=== PATIENT | female | born 1990 | race African-American/Black ===

== ENCOUNTER 2021-09-14 17:37 | Emergency (ER) | payer OTHER, SELFPAY ==
[2021-09-14 17:39] VITALS: BP 158/100; PULSE 80; RESP 16; TEMP 36.6; O2SAT 99
--- NOTE | 2021-09-14 18:13 | ED.EYEPROB ---
HPI - Eye Problem General Chief complaint: Eye Problems Stated complaint: left eye problem Time Seen by Provider: 09/14/21 17:47 History of Present Illness HPI Narrative: 31-year-old female presenting with left eye itching and feeling of irritation as if something is in the eye since last night, it was better this morning but her work wanted her to come to the hospital to be checked. No trauma, no one else with similar symptoms when her, no fevers or chills, no pain with movement of the eye. Related Data Allergies Allergy/AdvReac Type Severity Reaction Status Date / Time No Known Allergies Allergy Verified 09/14/21 17:38 Review of Systems Review of Systems: CONST: No fever. 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 EYES: Left eye injected, VA intact bilaterally, EOMI, no fluorescein uptake ENT: Hearing grossly intact LUNGS: Nonlabored breathing. HEART: [Regular rate and rhythm] EXT: Normal range of motion SKIN: [No rashes or lesions.] NEURO: [Alert and oriented x 3. No gross focal sensory or strength deficits.] PSYCH: Normal affect Course Vital Signs Vital signs: Vital Signs Temperature 97.9 F 09/14/21 17:39 Pulse Rate 80 09/14/21 17:39 Respiratory Rate 16 09/14/21 17:39 Blood Pressure 158/100 H 09/14/21 17:39 Pulse Oximetry 99 09/14/21 17:39 Oxygen Delivery Room Air 09/14/21 17:39 Temperature 97.9 F 09/14/21 17:39 Pulse Rate 80 09/14/21 17:39 Respiratory Rate 16 09/14/21 17:39 Blood Pressure 158/100 H 09/14/21 17:39 Pulse Oximetry 99 09/14/21 17:39 Oxygen Delivery Room Air 09/14/21 17:39 MDM - Eye Problem MDM Narrative Medical decision making narrative: 31-year-old female presenting with left red and teary eye that is itchy, vital signs stable, exam shows no corneal abrasion, or EOMI that is painless, suspect likely viral conjunctivitis, she does not wear contact lenses, will discharge her on erythromycin ointment and follow-up with ophthalmology, return if worse. Differential Diagnosis Differential diagnosis: Likely conjunctivitis; Unlikely corneal abrasion or acute iritis Discharge Plan Discharge Clinical Impression: Conjunctivitis Qualifiers: Conjunctivitis type: acute Acute conjunctivitis type: viral Laterality: left Qualified Code(s): B30.9 - Viral conjunctivitis, unspecified Patient Disposition: Home, Self-Care Condition: Stable Instructions: Antibiotic Form, Conjunctivitis (ED) Additional Instructions: Please use the eye ointment at least twice a day, and come back if you notice any worsening eye pain or blurry vision; follow up with the eye doctor or a primary care doctor. Prescriptions: New erythromycin 5 mg/gram (0.5 %) ointment 1 applic LEFT EYE BID 5 Days Qty: 3.5 0RF Follow-up/Referrals: Sandra Franco DO [Physician] - 2 Days Naresh Priest MD [Physician] - 2 Days PHYSICIAN,MANAGER SAS [Primary Care Provider] -
[2021-09-14] MEDS: ERYTHROMYCIN OPHTH OINTMENT 1 GM TUBE 1 APPLIC LEFT EYE (18:15)
== END 2021-09-14 18:32 | disposition home or self-care (01) ==
PROVIDERS: Emergency Provider Emergency Medicine
DX: B30.9 Viral conjunctivitis, unspecified (principal)
CPT/HCPCS: 99283; A9270

== ENCOUNTER 2022-02-05 02:14 | Emergency (ER) | payer OTHER, SELFPAY ==
[2022-02-05 02:21] VITALS: BP 164/104; PULSE 76; RESP 18; TEMP 36.3; O2SAT 100
[2022-02-05] MEDS: LIDOCAINE HCL 1% PF 30 ML VIAL 5 ML INFILTRATE (03:03)
--- NOTE | 2022-02-05 03:39 | ED.SKABFB ---
HPI - Skin/Abscess/Foreign Bdy General Chief complaint: Skin/Abscess/Foreign Body Stated complaint: Right nare MRSA Time Seen by Provider: 02/05/22 02:27 History of Present Illness HPI narrative: Patient is a 31-year-old female who presents ER with nasal abscess. This developed over the last couple days. Increased swelling at the nasal septum near the upper lip. Patient was able to express purulence this evening. No fevers chills or sweats. Has significant pain due to draining the abscess at home. 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 Related Data Allergies Allergy/AdvReac Type Severity Reaction Status Date / Time No Known Allergies Allergy Verified 02/05/22 02:15 Review of Systems Constitutional: Constitutional: Denies chills and Denies fever(s) ENT: Denies nasal congestion and Denies sore throat Comments: Nasal swelling with abscess Respiratory: Respiratory: Denies cough and Denies dyspnea Integumentary/Breasts: Skin/Breast: Denies erythema, Denies rash and Denies skin ulcer PMFSH Past Medical History Medical History (Updated 02/05/22 @ 03:39 by Toy Saba MD) No active medical problems Surgical History Surgical History (Updated 02/05/22 @ 03:43 by Toy Saba MD) No pertinent past surgical history Social History Social History (Updated 09/14/21 @ 18:15 by Sol Rocha MD) 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 HEAD: Normocephalic, atraumatic. EYES: PERRL and EOMI. ENT: Mucous membranes moist. Abscess nasal septum and upper lip mainly right nostril. Purulence can be expressed. NEURO: Alert and oriented x3. PSYCH: Normal mood and affect. Course Course Emergency Course: Attempted additional needle aspiration which was unsuccessful. Purulence can still be expressed we will put on topical and oral antibiotics and given ENT follow-up. Patient verbalized treatment plan. Vital Signs Vital signs: Vital Signs Temperature 97.4 F L 02/05/22 02:21 Pulse Rate 76 02/05/22 02:21 Respiratory Rate 18 02/05/22 02:21 Blood Pressure 164/104 H 02/05/22 02:21 Pulse Oximetry 100 02/05/22 02:21 Oxygen Delivery Room Air 02/05/22 02:21 Temperature 97.4 F L 02/05/22 02:21 Pulse Rate 76 02/05/22 02:21 Respiratory Rate 18 02/05/22 02:21 Blood Pressure 164/104 H 02/05/22 02:21 Pulse Oximetry 100 02/05/22 02:21 Oxygen Delivery Room Air 02/05/22 02:21 Discharge Plan Discharge Clinical Impression: Abscess of nasal septum Patient Disposition: Home, Self-Care Condition: Stable Instructions: Antibiotic Form, Abscess (ED) Additional Instructions: Follow-up with ENT for further treatment evaluation. You are being started on both the topical and oral antibiotic. Take them as directed. Take Wiley as needed for pain. Return the ER if you have increased swelling, you have fever over 100.4 ?F, you cannot keep down food/water/medication, you have additional concerns. Prescriptions: New sulfamethoxazole-trimethoprim [Bactrim DS] 800-160 mg tablet 1 tablet PO Q12H Qty: 20 0RF mupirocin 2 % ointment 1 applic topical TID Qty: 15 0RF hydrocodone-acetaminophen 5-325 mg tablet 1 tablet PO Q6H PRN (Reason: pain) Qty: 12 0RF No Action erythromycin 5 mg/gram (0.5 %) ointment 1 applic LEFT EYE BID 5 Days Qty: 3.5 0RF Follow-up/Referrals: Lenard Suh MD [Physician] - 1 Week PHYSICIAN,DITTO MACHINE OPERATOR [Primary Care Provider] -
== END 2022-02-05 04:05 | disposition home or self-care (01) ==
PROVIDERS: Emergency Provider Emergency Medicine
DX: J34.0 Abscess, furuncle and carbuncle of nose (principal)
CPT/HCPCS: 10160; 99283

== ENCOUNTER 2022-02-05 17:27 | Emergency (ER) | payer OTHER, SELFPAY ==
[2022-02-05 18:04] VITALS: BP 101/82; PULSE 72; RESP 16; TEMP 36.9; O2SAT 99
--- NOTE | 2022-02-05 19:52 | ED.GENADULT ---
HPI - General Adult General Chief complaint: Wound/Laceration Stated complaint: i have MRSA in my nose Time Seen by Provider: 02/05/22 19:42 Source: patient Mode of arrival: ambulatory Limitations: no limitations History of Present Illness HPI narrative: Presents complaints of purulent discharge from abscess to right nostril that started this afternoon. States was evaluated last night in the ER with I&D performed on abscess but no discharge at the time of I&D. States today started having copious amounts of purulent discharge to right nostril abscess. Patient was concerned that abscess was worsening and wanted to have checked. She is concerned that she may have MRSA. She was prescribed Bactrim DS as well as Bactroban. Also worried due to increased pain to the area following I&D. Denies fever or other complaints at this time. Related Data Allergies Allergy/AdvReac Type Severity Reaction Status Date / Time No Known Allergies Allergy Verified 02/05/22 02:15 Review of Systems Review of Systems: CONSTITUTIONAL: Denies fever, chills, or sweats. EYES: Denies visual changes, redness, or discharge. ENT: Abscess to right distal nostril. Denies rhinorrhea, congestion, sore throat, or otalgia. CARDIOVASCULAR: Denies chest pain, palpitations, or edema. RESPIRATORY: Denies cough or dyspnea. GASTROINTESTINAL: Denies abdominal pain, nausea, vomiting, or diarrhea. GENITOURINARY: Denies dysuria or hematuria. SKIN: Denies rash or itching. MUSCULOSKELETAL: Denies back pain, joint pain, or myalgia. NEUROLOGIC: Denies headache, numbness, or weakness. PSYCHIATRIC: Denies anxiety or depression. 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 HEAD: Normocephalic, atraumatic. EYES: PERRLA and EOMI. ENT: 1 cm abscess with central opening to right nostril. When pressure is applied to the area scant amount of green purulent discharge noted. Nares clear, no rhinorrhea or epistaxis. Mucous membranes moist. NECK: Supple. No palpable lymphadenopathy noted. CHEST: Clear to auscultation. No respiratory distress. HEART: Regular rate and rhythm. No murmur heard. Normal peripheral pulses. ABDOMEN: Soft, nontender, nondistended, normal active bowel sounds. EXTREMITIES: Normal range of motion. No edema. SKIN: Warm, dry, no rash. NEURO: No focal deficits. Alert and oriented x3. PSYCH: Normal mood and affect. Course Vital Signs Vital signs: Vital Signs Temperature 36.9 C 02/05/22 18:04 Pulse Rate 72 02/05/22 18:04 Respiratory Rate 16 02/05/22 18:04 Blood Pressure 101/82 02/05/22 18:04 Pulse Oximetry 99 02/05/22 18:04 Oxygen Delivery Room Air 02/05/22 18:04 Temperature 36.9 C 02/05/22 18:04 Pulse Rate 72 02/05/22 18:04 Respiratory Rate 16 02/05/22 18:04 Blood Pressure 101/82 02/05/22 18:04 Pulse Oximetry 99 02/05/22 18:04 Oxygen Delivery Room Air 02/05/22 18:04 Medical Decision Making Vital Signs Vital Signs: Vital Signs Temperature 36.9 C 02/05/22 18:04 Pulse Rate 72 02/05/22 18:04 Respiratory Rate 16 02/05/22 18:04 Blood Pressure 101/82 02/05/22 18:04 Pulse Oximetry 99 02/05/22 18:04 Oxygen Delivery Room Air 02/05/22 18:04 Temperature 36.9 C 02/05/22 18:04 Pulse Rate 72 02/05/22 18:04 Respiratory Rate 16 02/05/22 18:04 Blood Pressure 101/82 02/05/22 18:04 Pulse Oximetry 99 02/05/22 18:04 Oxygen Delivery Room Air 02/05/22 18:04 Discharge Plan Discharge Clinical Impression: Abscess of nasal septum P
[2022-02-05 20:19] VITALS: O2SAT 99
== END 2022-02-05 20:20 | disposition home or self-care (01) ==
LOC: ANHED 20:12
PROVIDERS: Emergency Provider Nurse Practitioner
DX: J34.0 Abscess, furuncle and carbuncle of nose (principal)
CPT/HCPCS: 99281